=== PATIENT | male | born 1950 ===

== ENCOUNTER → 2023-08-09 | Outpatient (CLI) | payer MEDICARE ==
[~2023-08-09] VITALS: Ht 182.9 cm; Wt 71.5 kg
[2023-08-09 12:19] VITALS: BP 134/87; PULSE 98; RESP 20; TEMP 98.3; O2SAT 91
== END | disposition home or self-care (01) ==
LOC: SRCNTR 11:07
PROVIDERS: ATTEND Internal Medicine Pulmonary Disease
DX: J44.9 Chronic obstructive pulmonary disease, unspecified (principal)
CPT/HCPCS: G0463